=== PATIENT | female | born 2000 | race Caucasian/White ===

== ENCOUNTER 2022-03-08 19:27 | Emergency (ER) | payer BC ==
[~2022-03-08] VITALS: Ht 177.8 cm; Wt 63.6 kg
[2022-03-08 19:36] VITALS: TEMP 98.5
[2022-03-08 20:16] LABS: BASO % 0.2 % (0.0-2.0); EOS % 0.1 % (0.0-4.0); GRAN # 9.7 K/mm3 (1.4-6.5); GRAN % 86.1 % (42.2-75.2); HEMATOCRIT 39.5 % (35.0-45.0); HEMOGLOBIN 14.1 g/dl (12.0-15.0); LYMPH % 8.4 % (20.0-51.0); MEAN CELL VOLUME 84 fl (80.0-95.0); MEAN CORPUSCULAR HEMOGLOBIN 30 pg (26-32); MEAN CORPUSCULAR HGB CONC 36 g/dl (33.0-37.0); MEAN PLATELET VOLUME 9.2 fl (7.4-10.4); MONO # 0.6 K/mm3 (0.1-0.6); PLATELET COUNT 273 K/mm3 (130-400)
[2022-03-08 20:20] LABS: COLLECTION METHOD CLEAN CATCH
[2022-03-08 20:25] LABS: PH 8.5 (5.0-8.5); URINE APPEARANCE Clear (CLEAR/HAZY); URINE BLOOD TRACE-INTACT (NEGATIVE); URINE COLOR Yellow (YELLOW); URINE GLUCOSE Negative (NEGATIVE); URINE KETONE Negative (NEGATIVE); URINE NITRATE Negative (NEGATIVE); URINE PROTEIN(semi-quant) Negative (NEGATIVE); URINE UROBILINOGEN 0.2 E.U/dL (0.2-1.0)
[2022-03-08 20:28] LABS: SQUAMOUS EPITHELIAL None Seen /hpf (0-10); URINE BACTERIA Rare /hpf (NONE SEEN); URINE RBC 0-2 /hpf (0-2)
[2022-03-08 20:45] LABS: ALBUMIN 3.6 gm/dL (3.5-5.0); BILIRUBIN,TOTAL 0.3 mg/dL (0.2-1.2); CALCIUM 9.4 mg/dL (8.4-10.2); CREATININE, serum 1.19 mg/dL (0.57-1.11); POTASSIUM 3.3 mmol/L (3.5-4.5); TOTAL PROTEIN 7.2 gm/dL (6.2-8.1)
[2022-03-08 21:26] VITALS: BP 130/82; PULSE 103
== END 2022-03-08 21:26 | disposition home or self-care (01) ==
LOC: COL.ER 19:27
PROVIDERS: Family Medicine
DX: E86.0 Dehydration (principal); R00.2 Palpitations; F41.9 Anxiety disorder, unspecified; Z20.822 Contact with and (suspected) exposure to COVID-19
CPT/HCPCS: J1790; J7120